=== PATIENT | female | born 1975 | race Hispanic/Latino ===

== ENCOUNTER 2017-08-15 19:45 | Inpatient (IN) | payer MEDICAID ==
[2017-08-15 19:49] VITALS: O2SAT 98
--- NOTE | 2017-08-15 19:53 | ED PDOC ---
Psych Transfer Clearance - Clearance Statement Clearance Statement: Dr. Thomas reviewed vital signs, lab results and transfer papers, determined patient clinically stable for psychiatric admission.
[2017-08-15] MEDS ORDERED: DiphenhydrAMINE 50 mg/ml Inj IM PRN (20:39)
[2017-08-15] MEDS ORDERED: Alum-Mag Hydrox-Simethicone Susp (30 mL) PO PRN (20:39)
[2017-08-15] MEDS ORDERED: Magnesium Hydroxide Susp 30 ml UD PO PRN (20:39)
--- NOTE | 2017-08-15 21:00 | PCM.BM ---
<Santana Chaves - Last Filed: 08/15/17 20:58> Treatment Plan Problems - Problems identified on initial assessmt Hopelessness/Helplessness Date Initiated: 08/15/17 Time Initiated: 20:59 Assessment reference: NA Status: Active Priority: 1 Medication nonadherence Date Initiated: 08/15/17 Time Initiated: 20:59 Assessment reference: NA Status: Active Priority: 2 Treatment assets and liabiliti Patient Assests: cooperative, negotiates basic needs, cognitively intact Patient Liabilities: live alone, substance abuse - Milieu Protocol Maintain good personal hygiene: daily Encourage regular showers, daily Remind patient to perform daily oral care, daily Assist patient to perform ADL's Maintain personal safety: every shift Educate patient to report safety concerns to staff, every shift Monitor environment for contraband/sharps Medication safety: Monitor for expected outcome, potential side effects: every shift, Assess barriers to learning: every shift, Assess readiness for medication education: every shift <Roberto Donald - Last Filed: 08/18/17 09:32> Family Contact Family involvement: Family/SO is involved Family contact: Patient agrees to contact, Family has been contacted by patient , Telephone contact initiated by staff Family contact name: Ellie (Mother)/Parminder (Father) Family contacted how many times per week?: 7 Family contact comment: Utility Bag Assembler spoke with Ellie (pt's mother [phone]) to obtain collateral and orient pt's mother to the procedures and structure of unit. As per Ellie pt has been squatting in an abandoned house in [place] and has been prostituting to purchase Heroin. Pt's mother reported that recently pt has been calling her while high and saying that she wants to kill herself. Pt's mother is very concerned about pt and her safety and does not want her discharged. Utility Bag Assembler explained to pt's mother that pt is on a voluntary unit and she cannot be held against her will as long as she denies SI/HI and appears to be in good mental standing. Utility Bag Assembler will continue to follow-up with pt's mother once pt is assessed and is agreeable to sharing information with family. - Goals for Treatment Patient goals for treatment: Feel comfortable during withdrawals. Patient's family/SO goals for treatment: Pt's parents would like her to be transferred to a long-term ma facility for residential rehab once she is detoxed. Discharge/Continuing Care - Education Needs Education Needs: Family Medication, Family Diagnosis/Disease Process, Patient Medication, Patient Diagnosis/Disease Process, Patient Coping Skills, Patient Community resources, Patient Health Practices/Safety - Discharge Discharge Criteria: Tolerates medication w/o severe side effects, Free of Suicidal thoughts, Free of agitation, No longer exhibiting s/s of withdrawal, Reduction of target symptoms Discharge to:: [facility] - Treatment Team Participation Discussed with Family/SO: Yes Was Patient/Family/SO present at Treatment Team Meeting: Yes
[2017-08-16 07:58] LABS: BASO % 0.3 % (0.0-2.0); EOS # 0.1 K/uL (0.0-0.7); EOS % 0.6 % (0.0-4.0); HEMATOCRIT 44.6 % (34.0-47.0); LYMPH # 2.2 K/uL (1.0-4.3); LYMPH % 23.4 % (20.0-40.0); MEAN CELL VOLUME 90.4 fl (81.0-99.0); MEAN CORPUSCULAR HEMOGLOBIN 29.7 pg (27.0-31.0); MEAN CORPUSCULAR HGB CONC 32.8 g/dL (33.0-37.0); MONO # 0.7 K/uL (0.0-0.8); MONO % 7.9 % (0.0-10.0); NEUT # 6.3 K/uL (1.8-7.0); NEUT % 67.8 % (50.0-75.0); NRBC % 0.1 % (0.0-0.0); RED CELL DISTRIBUTION WIDTH 14.6 % (11.5-14.5); WHITE BLOOD COUNT 9.3 K/uL (4.8-10.8)
[2017-08-16 08:10] LABS: ALB/GLOB RATIO 1.2 (1.0-2.1); ALKALINE PHOSPHATASE 59 U/L (38-126); ALT/SGPT 32 U/L (9-52); AST/SGOT 27 U/L (14-36); BILIRUBIN,TOTAL 0.6 mg/dl (0.2-1.3); BLOOD UREA NITROGEN 13 mg/dl (7-17); CALCIUM 9.5 mg/dL (8.4-10.2); CARBON DIOXIDE 26 mmol/L (22-30); CHLORIDE 106 mmol/L (98-107); CHOLESTEROL 128 mg/dL (0-199); GFR AFRICAN-AMERICAN > 60; GLUCOSE,RANDOM 106 mg/dL (65-105); POTASSIUM 4.4 MMOL/L (3.6-5.0); SODIUM 144 mmol/l (132-148); TOTAL PROTEIN 7.1 G/DL (6.3-8.2)
[2017-08-16 08:25] LABS: T4 8.41 ug/dl (5.5-11.0)
[2017-08-16 08:38] LABS: THYROID STIMULATING HORMONE 0.26 mIU/ML (0.46-4.68)
[2017-08-16] MEDS: Multivitamin With Minerals Tab PO SCH (09:49)
--- NOTE | 2017-08-16 10:40 | CP.PCM.CON ---
History of Present Illness - History of Present Illness History of Present Illness: Reason for Consult: per hospital protocol 42 y/o F with PMH of depression and bipolar admitted to the hospital for depression, hopelessness and suicidal ideation. pt seen and examined this morning, as per pt she is homeless and going through withdrawal. pt uses Heroin and Alcohol everyday since last 12 years. she uses 10bags of heroin by snorting daily,and drinks a pint of vodka daily. she stopped her alcohol and Heroin 2 days ago b/c she would like to get clean. pt continues asking about her medications and something to help her with this withdrawal symptoms. pt denies any auditory hallucination but adds she feels like something crawling on her body. pt reports feeling anxious, palpitations, chills and headache, diarrhea resolved after medication last night. denies n/v, fever, chest pain, SOB or abdo pain. PMD: Haven't seen any doctor in a while PMH: depression and bipolar, suicide attempt in past by cutting her arms PSH: denies Allg: NKDA Med: As listed below SH: Alcohol use everyday- Pint of vodka, smokes crack everyday and Heroin use. No cig FH: Mother- HTN, 2 children- healthy VS: reviewed, afebrile and HR 114 Review of Systems - Constitutional Constitutional: Chills, Headache. absent: Fever, Weight Gain, Weight Loss - EENT Eyes: As Per HPI. absent: Blurred Vision, Itchy Eyes, Pain Ears: absent: Dizziness Nose/Mouth/Throat: As Per HPI - Cardiovascular Cardiovascular: As Per HPI, Rapid Heart Rate. absent: Chest Pain, Dyspnea on Exertion, Edema, Irregular Heart Rhythm, Leg Edema, Leg Ulcers, Pedal Edema - Respiratory Respiratory: absent: Cough, Dyspnea, Hemoptysis - Gastrointestinal Gastrointestinal: absent: Abdominal Pain - Genitourinary Genitourinary: absent: Change in Urinary Stream, Difficulty Urinating, Dysuria, Flank Pain, Hematuria - Musculoskeletal Musculoskeletal: As Per HPI - Neurological Neurological: absent: Abnormal Gait, Abnormal Hearing, Abnormal Speech, Confusion - Psychiatric Psychiatric: Anxiety, Depression, Difficulty Concentrating, Hopelessness, Irritability, Mood Swings, Tactile Hallucinations. absent: Homicidal Ideation, Memory Loss - Endocrine Endocrine: As Per HPI - Hematologic/Lymphatic Hematologic: As Per HPI Past Patient History - CARDIAC Hx Cardiac Disorders: No - PULMONARY Hx Respiratory Disorders: No - NEUROLOGICAL Hx Neurological Disorder: No - HEENT Hx HEENT Problems: No - RENAL Hx Chronic Kidney Disease: No - ENDOCRINE/METABOLIC Hx Endocrine Disorders: No - HEMATOLOGICAL/ONCOLOGICAL Hx Blood Disorders: No - INTEGUMENTARY Hx Dermatological Problems: No - MUSCULOSKELETAL/RHEUMATOLOGICAL Hx Musculoskeletal Disorders: No - GASTROINTESTINAL Hx Gastrointestinal Disorders: No - GENITOURINARY/GYNECOLOGICAL Hx Genitourinary Disorders: No - PSYCHIATRIC Hx Bipolar Disorder: Yes (x 10 yrs) Hx Substance Use: Yes - SURGICAL HISTORY Hx Surgeries: No - ANESTHESIA Hx Anesthesia: No Meds Allergies/Adverse Reactions: Allergies Allergy/AdvReac Type Severity Reaction Status Date / Time No Known Allergies Allergy Verified 08/15/17 19:47 - Medications Medications: Current Medications Acetaminophen (Tylenol 325mg Tab) 650 mg PO Q4 PRN PRN Reason: for pain 4-7 Al Hydrox/Mg Hydrox/Simethicone (Maalox Plus 30 Ml) 30 ml PO QID PRN PRN Reason: Abdominal Discomfort Clonidine HCl (Catapres) 0.1 mg PO Q8 SUSI Stop: 08/18/17 20:46 Last Admin: 08/16/17 09:50 Dose: 0.1 mg Diphenhydramine HCl (Benadryl) 50 mg IM Q6 PRN PRN Reason: Extrapyramidal S/S Unable PO Diphenhydramine HCl (Benadryl) 50 mg PO Q6 PRN PRN Reason: Extrapyramidal Symptoms Diphenhydramine HCl (Benadryl) 50 mg PO HS PRN PRN Reason: Sleep Haloperidol (Haldol) 5 mg PO Q4 PRN PRN Reason: Agitation Haloperidol Lactate (Haldol) 5 mg IM Q4 PRN PRN Reason: Agitation, Unable to Take PO Ibuprofen (Motrin Tab) 600 mg PO Q8 PRN PRN Reason: pain level 7-10 Stop: 08/19/17 00:08 Loperamide HCl (Imodium) 2 mg PO Q4 PRN PRN Reason: After Loose Bowel Movement Last Admin: 08/16/17 09:50 Dose: 2 mg Lorazepam (Ativan) 2 mg IM Q4 PRN PRN Reason: Anxiety/Agitation,Unable PO Lorazepam (Ativan) 2 mg PO Q4 PRN PRN Reason: Anxiety/Agitation Last Admin: 08/16/17 09:49 Dose: 2 mg Magnesium Hydroxide (Milk Of Magnesia) 30 ml PO HS PRN PRN Reason: Constipation Multivitamins/Minerals (Therapeutic-M Tab) 1 tab PO DAILY SUSI Last Admin: 08/16/17 09:49 Dose: 1 tab Temazepam (Restoril) 30 mg PO HS PRN PRN Reason: Insomnia Physical Exam - Constitutional Appears: Non-toxic, No Acute Distress - Head Exam Head Exam: ATRAUMATIC, NORMAL INSPECTION, NORMOCEPHALIC - Eye Exam Eye Exam: EOMI, Normal appearance, PERRL Pupil Exam: NORMAL ACCOMODATION, PERRL - ENT Exam ENT Exam: Mucous Membranes Moist, Normal Exam - Neck Exam Neck exam: Positive for: Normal Inspection - Respiratory Exam Respiratory Exam: Clear to Auscultation Bilateral, NORMAL BREATHING PATTERN - Cardiovascular Exam Cardiovascular Exam: Tachycardia, REGULAR RHYTHM, +S1, +S2. absent: +S4 - GI/Abdominal Exam GI & Abdominal Exam: Normal Bowel Sounds, Soft. absent: Tenderness - Extremities Exam Extremities exam: Positive for: calf tenderness, full ROM, normal capillary refill, pedal pulses present. Negative for: joint swelling, pedal edema - Back Exam Back exam: absent: CVA tenderness (L), CVA tenderness (R) - Neurological Exam Neurological exam: Alert, CN II-XII Intact, Oriented x3 - Psychiatric Exam Psychiatric exam: Agitated, Anxious - Skin Skin Exam: Dry, Intact, Normal Color Results - Vital Signs Recent Vital Signs: Last Vital Signs Temp 97.3 F L 08/15/17 20:30 Pulse 114 H 08/16/17 09:50 Resp 20 08/16/17 09:00 BP 133/85 08/16/17 09:50 Pulse Ox 98 08/15/17 19:47 - Labs Result Diagrams: 08/16/17 07:49 08/16/17 07:49 Labs: Laboratory Results - last 24 hr 08/16/17 08/16/17 07:49 07:49 WBC 9.3 RBC 4.93 Hgb 14.6 Hct 44.6 MCV 90.4 MCH 29.7 MCHC 32.8 L RDW 14.6 H Plt Count 288 MPV 7.0 L Neut % (Auto) 67.8 Lymph % (Auto) 23.4 Harvey % (Auto) 7.9 Eos % (Auto) 0.6 Baso % (Auto) 0.3 Neut # 6.3 Lymph # 2.2 Harvey # 0.7 Eos # 0.1 Baso # 0.0 Sodium 144 Potassium 4.4 Chloride 106 Carbon Dioxide 26 Anion Gap 15 BUN 13 Creatinine 0.9 Est GFR ( Amer) > 60 Est GFR (Non-Af Amer) > 60 Random Glucose 106 H Calcium 9.5 Total Bilirubin 0.6 AST 27 ALT 32 Alkaline Phosphatase 59 Total Protein 7.1 Albumin 3.8 Globulin 3.3 Albumin/Globulin Ratio 1.2 Triglycerides 69 Cholesterol 128 LDL Cholesterol Direct 67 HDL Cholesterol 36 Thyroxine (T4) 8.41 TSH 3rd Generation 0.26 L Assessment & Plan - Assessment and Plan (Free Text) Assessment: A/P: 42 y/o F with PMH of depression and bipolar admitted to the hospital for depression, hopelessness and suicidal ideation. Alcohol and Heroin addiction. - Continue treatment as per psyc - Date & Time Date: 08/16/17 Time: 09:15
--- NOTE | 2017-08-16 11:42 | PCM.PSYCH ---
Initial Psychiatric Evaluation - Initial Psychiatric Evaluation Type of Admission: Voluntary Legal Status: Capacity Chief Complaint (in patient's own words): just give me some medicine, you can put me on anything Patient's Reaction to Hospitalization: cooperative History of Present Illness and Precipitating Events: 42 yo female with history of alcohol dependence, opioid dependence and bipolar disorder. she lives in [place] but was transferred from [facility] where she was visiting her mother. states she was having suicidal thoughts. she uses 10bags of heroin by snorting daily. she drinks a pint of vodka daily. she is currently feeling nauseated having diarrhea is tremulous and restless. states she takes 300mg of seroquel twice a day and 150mg of elavil daily, but is not consistent with meds. she was hospitalized at [facility] about a year ago. she reports 5 years of daily drug use. she reports she was in a rehab about 6 years ago and was sober for 9 months at that time. she reports she has a suicide attempt in past, by cutting her arms. she denies intent to kill self now. she is physically uncomfortable from withdrawal symptoms and ends the interview. Current Medications: Active Medications Generic Name Dose Route Start Last Admin Trade Name Freq PRN Reason Stop Dose Admin Acetaminophen 650 mg 08/15/17 20:39 Tylenol 325mg Tab PO Q4 PRN for pain 4-7 Al Hydrox/Mg Hydrox/Simethicone 30 ml 08/15/17 20:44 Maalox Plus 30 Ml PO QID PRN Abdominal Discomfort Clonidine HCl 0.1 mg 08/15/17 20:45 08/16/17 09:50 Catapres PO 08/18/17 20:46 0.1 mg Q8 SUSI Administration Cyclobenzaprine HCl 10 mg 08/16/17 11:37 Flexeril PO TID PRN Muscle spasm Diphenhydramine HCl 50 mg 08/15/17 20:39 Benadryl IM Q6 PRN Extrapyramidal S/S Unable PO Diphenhydramine HCl 50 mg 08/15/17 20:39 Benadryl PO Q6 PRN Extrapyramidal Symptoms Diphenhydramine HCl 50 mg 08/15/17 20:39 Benadryl PO HS PRN Sleep Gabapentin 300 mg 08/16/17 13:00 Neurontin PO TID SUSI Haloperidol 5 mg 08/15/17 20:39 Haldol PO Q4 PRN Agitation Haloperidol Lactate 5 mg 08/15/17 20:39 Haldol IM Q4 PRN Agitation, Unable to Take PO Ibuprofen 600 mg 08/16/17 00:08 Motrin Tab PO 08/19/17 00:08 Q8 PRN pain level 7-10 Loperamide HCl 2 mg 08/15/17 20:44 08/16/17 09:50 Imodium PO 2 mg Q4 PRN Administration After Loose Bowel Movement Lorazepam 2 mg 08/15/17 20:39 Ativan IM Q4 PRN Anxiety/Agitation,Unable PO Lorazepam 2 mg 08/15/17 21:13 08/16/17 09:49 Ativan PO 2 mg Q4 PRN Administration Anxiety/Agitation Lorazepam 1 mg 08/16/17 13:00 Ativan PO TID SUSI Magnesium Hydroxide 30 ml 08/15/17 20:39 Milk Of Magnesia PO HS PRN Constipation Multivitamins/Minerals 1 tab 08/16/17 09:00 08/16/17 09:49 Therapeutic-M Tab PO 1 tab DAILY SUSI Administration Ondansetron HCl 4 mg 08/16/17 11:37 Zofran Tab PO Q4 PRN Nausea/Vomiting Quetiapine Fumarate 100 mg 08/16/17 11:35 Seroquel PO AMHS SUSI Past Psychiatric History - Past Psychiatric History Previous Treatment History: Inpatient Prior Professional Help: as per hpi History of Abuse: does not provide this history History of ETOH/Drug Use: 10bags heroin intranasal, 1 pint vodka daily. ? cigarettes. denies other sustance use. History of Family Illness: unknown Pertinent Medical Hx (Current Medical&Sleep Prob, Allergies): Allergies Allergy/AdvReac Type Severity Reaction Status Date / Time No Known Allergies Allergy Verified 08/15/17 19:47 No Known Home Med 08/16/17 Review of Systems - Psychiatric Psychiatric: As Per HPI Mental Status Examination - Personal Presentation Personal Presentation: Looks stated age Additional comments: restless - Affect Affect: Constricted - Motor Activity Motor Activity: Calm - Reliability in Providing Information Reliability in Providing Information: Fair - Speech Speech: Organized - Mood Mood: Depressed, Anxious - Formal Thought Process Formal Thought Process: No Impairment - Obsessions/Compulsions Obsessions: No Compulsions: No - Cognitive Functions Orientation: Person, Place, Situation, Time Sensorium: Alert Attention/Concentration: Attentive Abstract Thinking: Lyman Estimate of Intelligence: Average Judgement: Intact, as evidence by: Good judgement Memory: Recent intact, as evidence by: Ability to recall events of the day, Remote intact, as evidenced by: Abilit to recall sig. life events - Risk Risk: Suicidal (denies any intent/plan currently), Withdrawal, Diminished functioning - Strength & Assets Inventory Strength & Assets Inventory: Intelligence, Family support DSM 5 DX - DSM 5 DSM 5 Diagnosis: opioid dependence alcohol dependence bipolar disorder - Recommended/Plan of Treatment Treatment Recommendations and Plan of Treatment: admit to [facility] for safety and observation gather collateral information provide supportive therapy adjust medications- resart seroquel, prns for opioid/alcohol withdrawal. hospitalist consult disposition planning Projected ELOS: 5-7 days Prognosis: fair - Smoking Cessation Smoking Cessation Initiated: No
[2017-08-17 09:11] VITALS: RESP 20
[2017-08-17] MEDS: Multivitamin With Minerals Tab PO SCH (09:32)
--- NOTE | 2017-08-17 11:21 | PCM.PYCHPN ---
Psychiatric Progress Note - Psychiatric Progress Note Patient seen today, length of contact: discussed with team Patient Chief Complaint: i want to leave, they lied to me Problems Identified/Issues Discussed: pt states she wouldn't have come here if she didn't know she wouldn't get methadone or suboxone. she states she is having bad stomach cramps, nausea, loose stools and general discomfort. she no longer wants to go to drug rehab. she states "i can do it on my own!" she is asking for medications to "keep me sedated" Medication Change: Yes (lower ativan, start elavil and inc. seroquel) Medical Record Reviewed: Yes Mental Status Examination - Cognitive Function Orientation: Person, Place, Situation, Time Memory: Intact Attention: WNL Concentration: WNL Association: WNL Fund of Knowledge: WN Decription of patient's judgement and insights: variable - Mood Mood: Depressed, Anxious - Affect Affect: Constricted - Speech Speech: Appropriate - Formal Thought Process Formal Thought Process: No Impairment - Suicidal Ideation Suicidal Ideation: No - Homicidal Ideation Homicidal Ideation: No Plan: denies suicidal or homicidal thoughts Goal/Treatment Plan - Goal/Treatment Plan Need for Continued Stay: Remain at risks for inpatient hospitalization, Discharge may exacerbated symptoms Progress Toward Problem(s) and Goals/Treatment Plan: opioid dependence alcohol dependence bipolar disorder unspecified will restart elavil at lower does and increase seroquel as she was taking 600mg/ day in past start to taper ativan pt may sign 48 hour notice as she no longer wants rehab Estimated Date of D/C: 08/18/17
[2017-08-18] MEDS: Multivitamin With Minerals Tab PO SCH (09:31)
--- NOTE | 2017-08-18 11:18 | PCM.PYCHPN ---
Psychiatric Progress Note - Psychiatric Progress Note Patient seen today, length of contact: discussed with team Patient Chief Complaint: i will stay now Problems Identified/Issues Discussed: pt reports she is no longer having withdrawal symptoms. she is asking for outpt program for substance abuse. she reports she is anxious. c/o pain in her legs. she is more visible in the milieu. Medication Change: Yes (increase seroquel- will swtich to bid dosing tomorrow) Medical Record Reviewed: Yes Mental Status Examination - Cognitive Function Orientation: Person, Place, Situation, Time Memory: Intact Attention: WNL Concentration: WNL Association: WNL Fund of Knowledge: [facility] Decription of patient's judgement and insights: variable - Mood Mood: Depressed, Anxious - Affect Affect: Constricted - Speech Speech: Appropriate - Formal Thought Process Formal Thought Process: No Impairment - Suicidal Ideation Suicidal Ideation: No - Homicidal Ideation Homicidal Ideation: No Goal/Treatment Plan - Goal/Treatment Plan Need for Continued Stay: Remain at risks for inpatient hospitalization, Discharge may exacerbated symptoms Progress Toward Problem(s) and Goals/Treatment Plan: opioid dependence alcohol dependence bipolar disorder unspecified will restart elavil at lower does and increase seroquel as she was taking 600mg/ day in past start to taper ativan pt may sign 48 hour notice as she no longer wants rehab Estimated Date of D/C: 08/18/17
[2017-08-19 07:13] LABS: T4 7.53 ug/dl (5.5-11.0)
[2017-08-19 07:27] LABS: THYROID STIMULATING HORMONE 1.44 mIU/ML (0.46-4.68)
[2017-08-19] MEDS: Multivitamin With Minerals Tab PO SCH (08:47)
[2017-08-19] MEDS: Alum-Mag Hydrox-Simethicone Susp (30 mL) PO PRN ×2 (10:45→14:16)
--- NOTE | 2017-08-19 12:06 | PCM.PYCHPN ---
Psychiatric Progress Note - Psychiatric Progress Note Patient seen today, length of contact: discussed with team Patient Chief Complaint: i feel better psychiatrically Problems Identified/Issues Discussed: pt denies any withdrawal symptoms. she is taking medications and denies side effects. she is willing to call rehab from home if on waiting list. denies any thoughts to harm self. Medication Change: Yes (change seroquel to 300mg bid as she took at home) Medical Record Reviewed: Yes Mental Status Examination - Cognitive Function Orientation: Person, Place, Situation, Time Memory: Intact Attention: WNL Concentration: WNL Association: WNL Fund of Knowledge: WN Decription of patient's judgement and insights: fair - Mood Mood: Neutral - Affect Affect: Broad - Speech Speech: Appropriate - Formal Thought Process Formal Thought Process: No Impairment - Suicidal Ideation Suicidal Ideation: No - Homicidal Ideation Homicidal Ideation: No Goal/Treatment Plan - Goal/Treatment Plan Need for Continued Stay: Remain at risks for inpatient hospitalization, Discharge may exacerbated symptoms Progress Toward Problem(s) and Goals/Treatment Plan: opioid dependence alcohol dependence bipolar disorder unspecified discharge tomorrow have discontinued ativan Estimated Date of D/C: 08/18/17
[2017-08-19 16:48] LABS: RBC URINE 1 /hpf (0-3); URINE BILIRUBIN NEGATIVE (NEGATIVE); URINE BLOOD NEGATIVE (NEGATIVE); URINE COLOR YELLOW (YELLOW); URINE GLUCOSE (UA) NEG (Normal); URINE KETONE NEGATIVE (NEGATIVE); URINE LEUKOCYTE ESTERASE MOD Leu/uL (Negative); URINE PROTEIN NEGATIVE (NEGATIVE); URINE UROBILINOGEN 0.2-1.0 mg/dL (0.2-1.0); WBC URINE 9 /hpf (0-5)
[2017-08-19] MEDS: Simethicone 80 mg Chewtab PO PRN (16:52)
[2017-08-19 17:33] LABS: BLOOD UREA NITROGEN 19 mg/dl (7-17); CALCIUM 9.4 mg/dL (8.4-10.2); CARBON DIOXIDE 26 mmol/L (22-30); CHLORIDE 100 mmol/L (98-107); GFR AFRICAN-AMERICAN > 60; GLUCOSE,RANDOM 113 mg/dL (65-105); POTASSIUM 4.6 MMOL/L (3.6-5.0); SODIUM 138 mmol/l (132-148)
[2017-08-20] MEDS: Multivitamin With Minerals Tab PO SCH (09:00)
[2017-08-20 09:05] VITALS: BP 133/91; PULSE 125; TEMP 97.1
[2017-08-20] MEDS: Simethicone 80 mg Chewtab PO PRN (09:22)
--- NOTE | 2017-08-20 09:54 | PCM.PYCHDC ---
Mental Status Examination - Mental Status Examination Orientation: Person, Place, Situation, Time Memory: Intact Mood: Neutral Affect: Broad Speech: Appropriate Attention: WNL Concentration: WNL Association: WNL Fund of Knowledge: WNL Formal Thought Process: No Impairment Description of patient's judgement and insight: fair Psychotic Thoughts and Behaviors: denies any a/v hallucinations Suicidal Ideation: No Current Homicidal Ideation?: No Plan: denies any suicidal or homicidal thoughts Discharge Summary - Discharge Note Reason for Hospitalization: pt reported suicidal thoughts in context of opioid dependence and alcohol dependence Psychiatric History (includes Medical, Family, Personal Hx): history of bipolar disorder per pt Laboratory Data: Abnormal Lab Results 08/19/17 08/19/17 15:50 17:19 Sodium 138 Potassium 4.6 Chloride 100 Carbon Dioxide 26 Anion Gap 16 BUN 19 H Creatinine 1.1 Est GFR ( Amer) > 60 Est GFR (Non-Af Amer) 55 Random Glucose 113 H Calcium 9.4 Urine Color Yellow Urine Clarity Slighty-cloudy Urine pH 5.0 Ur Specific [place] 1.012 Urine Protein Negative Urine Glucose (UA) Neg Urine Ketones Negative Urine Blood Negative Urine Nitrate Negative Urine Bilirubin Negative Urine Urobilinogen 0.2-1.0 Ur Leukocyte Esterase Mod Urine RBC (Auto) 1 Urine Microscopic WBC 9 H Ur Squamous Epith Cells 2 Urine HCG, Qual Negative Consultations:: List each consultation separately and include: 1. Reason for request. 2. Findings. 3. Follow-up Consultations: seen by the hospitalist Summary of Hospital Course include:: 1. Description of specific treatment plan utilized for patients during their course of treatmen. 2. Summarize the time- course for resolution of acute symptoms and/or regressed behaviors. 3. Describe issues identified and worked on during hospitalization. 4. Describe medication utilized. 5. Describe medical problems identified and treated. 6. Reassessment of suicide risk Summary of Hospital Course: 42 yo female with history of alcohol dependence, opioid dependence and bipolar disorder. she lives in [place] but was transferred from [facility] where she was visiting her mother. states she was having suicidal thoughts. she uses 10bags of heroin by snorting daily. she drinks a pint of vodka daily. she is currently feeling nauseated having diarrhea is tremulous and restless. states she takes 300mg of seroquel twice a day and 150mg of elavil daily, but is not consistent with meds. she was hospitalized at [facility] about a year ago. she reports 5 years of daily drug use. she reports she was in a rehab about 6 years ago and was sober for 9 months at that time. she reports she has a suicide attempt in past, by cutting her arms. she denies intent to kill self now. she is physically uncomfortable from withdrawal symptoms and ends the interview. pt was admitted to [facility] and oriented to the unit. she was placed on routine safety protocols. she was started on medications to help with alcohol and opioid withdrawal and there were no complications. she was restarted on seroquel and elavil and tolerated these medications with improvement in her mood. she was participating in groups and was agreeing to follow up with aftercare at [facility]. her family was supportive and was in contact with the team social work lecturer. at time of discharge she was denying any suicidal or homicidal thoughts. - Final Diagnosis (DSM 5) Condition upon Discharge: GOOD DSM 5: opioid dependence bipolar disorder alcohol dependence Disposition: HOME/ ROUTINE Follow-up Treatment Plan: follow up with aftercare as directed take medication as prescribed do not use alcohol, tobacco or other illicit substances call 911 if any suicidal or homicidal thoughts. Prescriptions/Medication Reconciliation: Amitriptyline [Elavil] 25 mg PO HS #15 tab Gabapentin [Neurontin] 600 mg PO TID #45 tab Multimineral/Multivitamin [Therapeutic-M Tab] 1 tab PO DAILY #30 tab QUEtiapine [SEROquel] 300 mg PO AMHS #30 tab - Smoking Cessation Smoking Cessation Medication prescribed: No - Antipsychotic Medications Pt discharged on 2 or more routine antipsychotic medications: No
== END 2017-08-20 11:45 | disposition home or self-care (01) | DRG 745 ==
LOC: H.ER 19:45 → H.ERHOLD 19:50 → H.PSYCH 20:26
PROVIDERS: ADMIT Psychiatry & Neurology Psychiatry; ATTEND Psychiatry & Neurology Psychiatry
PROC: HZ52ZZZ Individual Psychotherapy for Substance Abuse Treatment, Cognitive-Behavioral (ICD-10-PCS; principal; 2017-08-15)
PROC: GZHZZZZ Group Psychotherapy (ICD-10-PCS; 2017-08-15)
PROC: GZ58ZZZ Individual Psychotherapy, Cognitive-Behavioral (ICD-10-PCS; 2017-08-15)
DX: F11.23 Opioid dependence with withdrawal (principal); F10.20 Alcohol dependence, uncomplicated; R45.851 Suicidal ideations; F31.9 Bipolar disorder, unspecified; F14.90 Cocaine use, unspecified, uncomplicated; Z59.0 Homelessness